=== PATIENT | male | born 1985 | race Caucasian/White ===

== ENCOUNTER 2025-05-30 09:14 | Outpatient (CLI) | payer OTHER | END 2025-05-30 09:24 | disposition home or self-care (01) | LOC: SONOGRAMA 09:14 → EDBD 09:14 → SONOGRAMA 09:24 | PROVIDERS: ATTEND Internal Medicine Gastroenterology | DX: K76.0 Fatty (change of) liver, not elsewhere classified (principal); R94.5 Abnormal results of liver function studies ==